=== PATIENT | male | born 1980 | race Caucasian/White ===

== ENCOUNTER 2022-03-07 19:17 | Emergency (ER) | payer OTHER ==
[~2022-03-07] VITALS: Ht 172.7 cm; Wt 63.5 kg
--- NOTE | 2022-03-07 20:16 | NUR ---
After being triaged, patient was placed back in the waiting room due to no beds available in the ER.
--- NOTE | 2022-03-07 22:09 | NUR ---
Patient placed in room 4b at this time.
--- NOTE | 2022-03-07 22:52 | NUR ---
dr. Castelan at bedside for MSE.
[2022-03-07] MEDS ORDERED: MECLIZINE HCL 25 MG TABLET PO ONE (23:15)
[2022-03-07] MEDS ORDERED: MECLIZINE HCL 25 MG TABLET ONE (23:26)
--- NOTE | 2022-03-07 23:30 | NUR ---
Dr. Castelan initially ordered a cat scan but I made the doctor aware that the cat scan machine is down here and he explained this to the pt and the pt says he will just follow up with his primary doctor.
[2022-03-08 00:17] LABS: HEMATOCRIT 44.5 % (36.7-47.1); MEAN CORPUSCULAR HEMOGLOBIN 30.2 uug (23.8-33.4); PLATELET COUNT (AUTO) 254 K/uL (152-348)
[2022-03-08 00:23] LABS: CARBON DIOXIDE 30 mmol/L (21-32); CHLORIDE 103 mmol/L (98-107); GLUCOSE 101 mg/dL (74-106); POTASSIUM 3.7 mmol/L (3.5-5.1); UREA NITROGEN, BLOOD 14 mg/dL (7-18)
[2022-03-08 00:31] LABS: ALANINE AMINOTRANSFERASE 52 U/L (16-63); ALKALINE PHOSPHATASE 56 U/L (50-136); ASPARTATE AMINOTRANSFERASE 22 U/L (15-37); BILIRUBIN,DIRECT 0.2 mg/dL (0.0-0.2); BILIRUBIN,TOTAL 0.6 mg/dL (0.2-1.0); TOTAL PROTEIN, SERUM 7.9 g/dL (6.4-8.2)
[2022-03-08] MEDS ORDERED: MECL-159 PO (00:49)
--- NOTE | 2022-03-08 00:53 | NUR ---
Patient discharged to home in stable condition. Written and verbal after care instructions given. Patient verbalizes understanding of instructions. Stressed follow up or return to ER for worsening s/s.
[2022-03-08 00:54] VITALS: BP 118/70
== END 2022-03-08 01:02 | disposition home or self-care (01) ==
LOC: ER 19:24
DX: R42 Dizziness and giddiness (principal); R07.9 Chest pain, unspecified; H93.12 Tinnitus, left ear; R03.0 Elevated blood-pressure reading, without diagnosis of hypertension; I45.2 Bifascicular block
CPT/HCPCS: 36415; 71045; 84484; 85025; 93005; A4663; J8597